=== PATIENT | female | born 1950 | race Caucasian/White ===

== ENCOUNTER 2019-01-10 07:02 | Emergency (ER) | payer BC, MEDICARE ==
--- NOTE | 2019-01-10 07:31 | UC ---
General HPI - HPI Summary HPI Summary: Pt is a 68 year old female presenting to with friend. Pt states yesterday she had a brief episode of "dizziness" - states lasted a few minutes and completely resolved. Patient states this morning when she woke at 5:30 she was very dizzy. Patient states like the room was spinning. Patient states she felt a little bit nauseous. Patient states she was struggling to maintain her balance. Patient states since that times it has improved. Patient denies any chest pain or shortness of breath. Patient denies any headaches. No eye pain. Patient does report that intermittently over the last several weeks she's been having palpitations. Patient denies a cough. Patient has abdominal pain. Patient denies fever, chills, rash. Patient denies nausea and vomiting. Patient states she's never had anything similar to this. Patient denies feeling short of breath. 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 Patient drives here weekly from [place] where she lives. Patient denies any trauma. Patient's medications reviewed this visit. - History of Current Complaint Chief Complaint: UCDizziness Stated Complaint: DIZZINESS Time Seen by Provider: 01/10/19 07:30 Hx Obtained From: Patient Pain Intensity: 0 - Allergy/Home Medications Allergies/Adverse Reactions: Allergies Allergy/AdvReac Type Severity Reaction Status Date / Time cephalexin [From Keflex] Allergy Vomiting Verified 01/10/19 07:25 Home Medications: Home Medications Naproxen Sodium [Aleve] 1 tab PO ONCE 01/10/19 [History Confirmed 01/10/19] PMH/Surg Hx/FS Hx/Imm Hx Previously Healthy: Yes - Surgical History Surgical History: Yes Surgery Procedure, Year, and Place: varicose vein removal - Family History Known Family History: Positive: Other - No family hx of strokes, CAD, Non- Contributory - Social History Occupation: Employed Full-time Alcohol Use: Occasionally Substance Use Type: None Smoking Status (MU): Never Smoked Tobacco Review of Systems All Other Systems Reviewed And Are Negative: Yes Constitutional: Positive: Negative Skin: Positive: Negative Eyes: Positive: Negative ENT: Positive: Negative Respiratory: Positive: Negative Cardiovascular: Positive: Palpitations - none currently Gastrointestinal: Positive: Negative Genitourinary: Positive: Negative Motor: Positive: Negative Neurovascular: Positive: Other Musculoskeletal: Positive: Negative Neurological: Positive: Negative Psychological: Positive: Negative Is Patient Immunocompromised?: No Physical Exam - Summary Physical Exam Summary: Vital Signs Reviewed: Yes A+Ox3, tired appearing Eyes: Conjunctiva Clear, NATHAN. EOM intact and full, no nystagmus - states sx increase when look to left ENT: Hearing grossly normal TM x 2 clear - no fluid, turbinates wnl, mmoist, uvula midline, no exudate, no erythema Neck: Positive: Supple Respiratory: Positive: No respiratory distress, No accessory muscle use + CTA throughout no w/r Cardiovascular: RRR nl s1, s2 no m/r CBT <2 sec, no bruits b/l abd soft + BS nt/nd no guarding, no distension Musculoskeletal Exam: LORENZO x 4 without difficulty Strength Intact, ROM Intact Psychological: Positive: Normal Response To examiner Skin: Positive: no rash, no ecchymosis Neuro: CN 2-12 intact and full - no nystagmus + FNF b/l + heel/diego b/l 5/5 abduction, flex/ext elbow, wrist against resistant 5/5 SLE, flex/ext knee, ankle miminal right pronator drift ambulatory without difficulty or assistance Triage Information Reviewed: Yes Vital Signs: Initial Vital Signs Temp 97 F 01/10/19 07:19 Pulse 60 01/10/19 07:19 Resp 18 01/10/19 07:19 BP 119/59 01/10/19 07:19 Pulse Ox 100 01/10/19 07:19 Course/Dx - Course Course Of Treatment: Patient presents to urgent care reporting waking up at 5 this morning with dizziness. Patient states that she felt nauseous everything was spinning. Patient states he symptoms have slightly improved. Continue. Patient states over the last several weeks she's been having episodes where she feels palpitations. Patient denies any fevers or chills. No head trauma. No history of CVA or ND. Patient is on anticoagulant. Patient is here from out of town teaching at [employer]. 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 On exam patient reports that his increases when she looks the left. Patient does not have any noted nystagmus. Patient has a subtle right pronator drift. Had long discussion with patient and her friend. Recommend patient go emergency department for further evaluation. Suspect this is likely peripheral vertigo however patient does have slight pronator drift, no nystagmus, has been having palpitations, and is here from out of town. Patient does not have nystagmus on exam. Patient elected at [facility] ED Patient's friend will drive her. I called the emergency department to give report and nurse's physician's were unable to come to the phone due to a critical patient. Patient 's friend driving her here. - Diagnoses Provider Diagnosis: Dizziness Discharge ED - Sign-Out/Discharge Documenting (check all that apply): Patient Departure All imaging exams completed and their final reports reviewed: No Studies - Discharge Plan Condition: Stable Disposition: HOME-RECOMMEND TO ED Patient Education Materials: Dizziness (ED) Referrals: No Primary Care Phys,NOPCP [Primary Care Provider] - Additional Instructions: The doctor that evaluated you today thinks that you need additional testing that can be completed the emergency department. It is recommended that you go directly to emergency department for further evaluation. This evaluation included blood work or imaging. This testing will be directed and decided by the provider that evaluates you at the emergency department. If pain becomes worse, you feel lightheaded, you have uncontrolled vomiting, or you have any other concerns while you are being driven to emergency department as recommended to pullover and contact 911. - Billing Disposition and Condition Condition: STABLE Disposition: Home-Recommend to ED
[2019-01-10 07:42] VITALS: BP 119/59
== END 2019-01-10 07:51 | disposition home health service (06) ==
LOC: UCCORT 07:02
DX: R42 Dizziness and giddiness (principal); Z88.1 Allergy status to other antibiotic agents
CPT/HCPCS: 99202; G0463